=== PATIENT | female | born 1980 | race Caucasian/White ===

== ENCOUNTER 2017-02-14 22:29 | Emergency (ER) | payer SELFPAY ==
[~2017-02-14 22:29] MED LIST: ACET500C5 PO; NITR-58 PO; ONDA4TAB35 PO
== END 2017-02-14 23:56 | disposition left against medical advice (07) ==
LOC: E/R 22:29
DX: Z53.21 Procedure and treatment not carried out due to patient leaving prior to being seen by health care provider (principal)

== ENCOUNTER 2018-01-28 18:29 | Emergency (ER) | END 2018-01-28 18:52 | disposition home or self-care (01) ==